=== PATIENT | male | born 1970 | race Caucasian/White ===

== ENCOUNTER 2020-03-01 11:06 | Emergency (ER) | payer OTHER ==
[~2020-03-01] VITALS: Ht 180.3 cm; Wt 86.2 kg
[2020-03-01] MEDS ORDERED: ASA81BEC PO (11:19)
[2020-03-01] MEDS ORDERED: SUPER THERAVIT1 EACH PO (11:19)
[2020-03-01 11:27] VITALS: BP 150/105
== END 2020-03-01 19:33 | disposition still patient (30) ==
LOC: M.ERS 11:06
DX: T18.128A Food in esophagus causing other injury, initial encounter (principal); X58.XXXA Exposure to other specified factors, initial encounter; Y93.89 Activity, other specified; Y92.89 Other specified places as the place of occurrence of the external cause; Y99.8 Other external cause status

== ENCOUNTER 2020-03-01 17:13 | Emergency (ER) | payer OTHER ==
[~2020-03-01] VITALS: Ht 180.3 cm; Wt 77.1 kg
[~2020-03-01 17:13] MED LIST: ASA81BEC PO; SUPER THERAVIT1 EACH PO
[2020-03-01 17:35] LABS: ABSOLUTE EOSINOPHILS 0.1 thou/uL (0.0-0.7); ABSOLUTE LYMPHOCYTES 1.7 thou/uL (0.8-5.3); ABSOLUTE MONOCYTES 0.9 thou/uL (0.0-1.2); ABSOLUTE NEUTROPHILS 8.5 thou/uL (1.6-8.1); BASOPHILS 0.4 %; EOSINOPHILS 0.6 %; HEMATOCRIT 46.3 % (42.0-52.0); HEMOGLOBIN 16.7 gm/dL (14.0-18.0); LYMPHOCYTES 14.9 %; MCHC 36.1 g/dL (28.0-37.0); MCV 94.2 fL (80.0-100.0); MONOCYTES 7.7 %; MPV 6.8 fl. (7.2-11.1); NUCLEATED RBCS 0 /100WBC; PLATELET COUNT* 367 thou/uL (150-400); POLYS 76.4 %; RBC 4.92 mil/uL (4.50-6.00); RDW-CV 12.8 % (10.5-14.5); WBC 11.2 thou/uL (4.0-11.0)
[2020-03-01 17:44] LABS: CALCIUM 8.8 mg/dL (8.5-10.1); CREATININE 1.1 mg/dL (0.6-1.3); POTASSIUM 3.8 mmol/L (3.5-5.1)
[2020-03-01 17:45] LABS: APTT 25.4 Seconds (25.0-31.3); PROTIME 10.3 Seconds (9.20-11.50)
[2020-03-01 17:49] LABS: ALBUMIN 4.5 g/dL (3.4-5.0); TOTAL BILIRUBIN 0.8 mg/dL (<0.1-1.0); TOTAL PROTEIN 8.7 g/dL (6.4-8.2)
[2020-03-01 18:44] LABS: URINE BILIRUBIN 1+ (Negative); URINE BLOOD NEGATIVE (Negative); URINE CLARITY CLEAR; URINE COLOR YELLOW; URINE GLUCOSE-RANDOM NEGATIVE (Negative); URINE KETONES 2+ (Negative); URINE LEUKOCYTES-REFLEX NEGATIVE (Negative); URINE NITRITE-REFLEX NEGATIVE (Negative); URINE PROTEIN NEGATIVE (Negative); URINE SPECIFIC GRAVITY >= 1.030 (1.005-1.030); URINE UROBILINOGEN 0.2 E.U./dl (0.2-1.0)
[2020-03-01 18:46] LABS: ICTOTEST (BILI CONFIRMATORY) Negative (Negative)
[2020-03-01 18:50] LABS: BACTERIA-REFLEX 1-9 Few /HPF (None Seen); MUCUS >6 Heavy strn/LPF (None Seen); SQUAMOUS 0-3 Few /LPF (0-3); URINE RBC 0-2 Rare /HPF (0-2); URINE WBC-REFLEX 0-5 Rare /HPF (0-5)
[2020-03-01 18:51] LABS: CRYSTALS None Seen /LPF (None Seen); HYALINE CASTS 0-3 Few /LPF (None Seen)
[2020-03-01 19:33] VITALS: BP 139/82
--- NOTE | 2020-03-02 14:57 | EKG ---
[place] [address] ELECTROCARDIOGRAM REPORT Name: KEYAJANETH Room: [facility]#: [id number] Admission: 03/01/20 Attend Phys: Discharge: 03/01/20 Date of : 72 Date of Service: 03/01/201729 Report #: [id number] THIS REPORT FOR: //name// [facility] ED Test Date: 2020-03-01 Test Time: 17:30:16 Pat Name: JANETH LAURA Department: Room: Gender: [place]: : 1970 Requested By: Jack Trinidad Order Number: [id number] MD: Hector Sparrow Measurements Intervals Joffre Rate: 83 P: 52 [place]: 139 QRS: 27 QRSD: 106 T: 33 QT: 377 QTc: 443 Interpretive Statements Sinus rhythm No previous ECG available for comparison Electronically Signed On 03-02-2020 14:55:55 CDT by Hector Sparrow [email or web address] <ELECTRONICALLY SIGNED> By: Hector Sparrow MD, [facility] 03/02/20 1455 29 29 Hector Sparrow MD, FACC /EPI
--- NOTE | 2020-03-03 14:08 | PATH ---
[address] [address] PATHOLOGY RPT PROCEDURE Name: LUL LAURA Room: [facility] TIM Dick#: [id number] Admission: 03/01/20 Date of : 72 Discharge: 03/01/20 Report #: [id number] Path Case #: [id number] [facility] Accession Number: [id number] . 01 Material submitted: . stomach - ANTRAL BIOPSY . 01 Clinical history: . Food bolus . 02 Diagnosis: Antral biopsy: - Minimal superficial vascular congestion in otherwise normal gastric antral mucosa, negative for Helicobacter pylori organisms. (JESSICA:eric; 03/03/2020) . . Special stain: H. pylori immuno QMS 03/03/2020 1044 Local . 02 Electronically signed: . Ken Dawn MD, Pathologist NPI- [id number] . 01 Gross description: . The specimen is received in formalin, labeled "Christen, Lul, antral biopsy" and consists of multiple fragments of matthews tissue measuring 0.7 x 0.6 x 0.2 cm in aggregate which are entirely submitted in A1. (SINDY; 03/02/2020) JFQ/JFQ 03/03/2020 1043 Local . 02 Pathologist provided ICD-10: K31.89 . 02 CPT . 071258, [id number] Specimen Comment: A courtesy copy of this report has been sent to [phone] Specimen Comment: Report sent to Performed at: [address], [place], [place] [id number] MD Stef Rich MD Phone: [phone] Performed at: [facility] [address], [place], [place] [id number] MD Ken Dawn MD Phone: [phone]
== END 2020-03-01 19:33 | disposition still patient (30) ==
LOC: M.ERS 17:13
PROVIDERS: Family Medicine
DX: T18.128A Food in esophagus causing other injury, initial encounter (principal); R11.10 Vomiting, unspecified; X58.XXXA Exposure to other specified factors, initial encounter; Y93.89 Activity, other specified; Y92.89 Other specified places as the place of occurrence of the external cause; Y99.8 Other external cause status